=== PATIENT | female | born 1960 | race Caucasian/White ===

== ENCOUNTER 2017-04-24 05:44 | Day surgery (SDC) | payer OTHER ==
[~2017-04-24] VITALS: Ht 162.6 cm; Wt 81.6 kg
[~2017-04-24 05:44] MED LIST: ASPI81TA85 PO
[2017-04-24] MEDS ORDERED: dexameTHASONE 4 MG/ML 1ML VIAL (J1100) IV ONE (06:00)
[2017-04-24] MEDS ORDERED: LR 1,000 ML IV ONE (06:15)
[2017-04-24] MEDS ORDERED: PROPOFOL 200 MG/20 ML VIAL As Ordered ONE (07:03)
[2017-04-24] MEDS ORDERED: MIDAZOLAM INJ 2 MG/2 ML VIAL (J2250) As Ordered ONE (07:03)
[2017-04-24] MEDS ORDERED: ONDANSETRON 4MG/2ML VIAL (J2405) As Ordered ONE (07:03)
[2017-04-24] MEDS ORDERED: LIDOCAINE 2% INJ 100 MG/5 ML SDV (FOR ANES.) As Ordered ONE (07:03)
[2017-04-24] MEDS ORDERED: fentaNYL 100 MCG/2 ML INJECTION (J3010) As Ordered ONE (07:04)
[2017-04-24] MEDS ORDERED: ROCURONIUM BROMIDE 50 MG/5 ML VIAL/SYRINGE As Ordered ONE (07:10)
[2017-04-24] MEDS ORDERED: LIDOCAINE W/EPINEPHRINE 1% 20ML VIAL As Ordered ONE (07:15)
[2017-04-24] MEDS ORDERED: HYDROmorphone HCL 2 MG/ML 1ML VIAL (J1170) As Ordered ONE (08:07)
[2017-04-24] MEDS ORDERED: fentaNYL 100 MCG/2 ML INJECTION (J3010) IV PRN (09:30)
[2017-04-24] MEDS ORDERED: LR 1,000 ML IV SCH ×2 (09:30→11:00)
[2017-04-24] MEDS ORDERED: MORPHINE 2 MG/ML 1ML SYRINGE IV PRN (09:30)
[2017-04-24] MEDS ORDERED: PERCOCET 5MG/325MG TAB PO PRN (09:30)
[2017-04-24] MEDS ORDERED: ONDANSETRON 4MG/2ML VIAL (J2405) IV PRN (09:30)
[2017-04-24] MEDS ORDERED: IBUPROFEN 100 MG/5 ML SUSP UDC DYE FREE PO PRN ×2 (11:00)
[2017-04-24] MEDS ORDERED: HYDROcodone/APAP LIQUID 7.5-325MG 15ML UDC (LORTAB ELIXIR) PO PRN (11:30)
[2017-04-24 12:30] VITALS: BP 136/81
--- NOTE | 2017-04-25 10:56 | RO ---
DATE OF PROCEDURE: 04/24/2017 PREOPERATIVE DIAGNOSIS: Snoring, obstructive sleep apnea. POSTOPERATIVE DIAGNOSIS: Snoring, obstructive sleep apnea. PROCEDURE PERFORMED: Uvulopalatopharyngoplasty. SURGEON: Dr. Javier Salas COMPOSITION MIXER: ANESTHESIA: General. CLINICAL PREAMBLE: This 56-year-old woman presented to the office complaining of snoring. She has had sleep study done, which demonstrated a respiratory disturbance index (RDI) of 11. She is intolerant of continuous positive airway pressure (CPAP) machine. Physical examination revealed enlarged uvula and redundant mucosa over the tonsil pillar regions. Management options, including surgery listed above, had been discussed. The patient understood and consented to the procedure. OR NARRATION: The patient was identified in preoperative holding and brought to the operating room in stable condition. In supine position on the operating room table, the patient received general anesthesia followed by oroendotracheal intubation without incident. The patient prepped and draped in the usual fashion for the procedure. The anterior tonsil pillar and the posterior edge of the soft palate were infiltrated with 1% lidocaine with 1:100,[address] The [place] mouth gag was inserted and suspended. Minimal remnants of palatine tonsil tissues were noted. Using electrocautery, the redundant mucosa, which was remnant of the tonsil tissues, were removed from the tonsil fossa. The posterior tonsil pillars were then also taken down with adequate mucosa left behind for reapproximation done in horizontal mattress suture fashion. The posterior edge as well as the uvula were also resected using the electrocautery. The mucosa was also reapproximated using the #3-0 Vicryl done in a horizontal mattress fashion. Adequate tissue was left in the soft palate region to ensure good approximation of the posterior edge of the soft palate against the posterior pharyngeal wall. At the end of the procedure, sponge and instrument counts were correct. No complication was encountered. Estimated blood loss was less than 5 mL. General anesthesia was reversed and the patient was extubated and brought to the recovery room in stable condition. DALI
== END 2017-04-24 13:20 | disposition home or self-care (01) ==
LOC: M SDC 05:44
PROVIDERS: ATTEND Otolaryngology
DX: R06.83 Snoring (principal); G47.33 Obstructive sleep apnea (adult) (pediatric); J34.2 Deviated nasal septum; J31.0 Chronic rhinitis; Z79.82 Long term (current) use of aspirin; F17.210 Nicotine dependence, cigarettes, uncomplicated; Z86.73 Personal history of transient ischemic attack (TIA), and cerebral infarction without residual deficits; Z91.018 Allergy to other foods; Z88.2 Allergy status to sulfonamides
CPT/HCPCS: 42145; 88302; J1100; J1170; J2250; J2405; J3010

== ENCOUNTER → 2018-07-01 | Outpatient (CLI) | payer OTHER | LOC: M RAD 13:01 | DX: Z12.31 Encounter for screening mammogram for malignant neoplasm of breast (principal) ==

== ENCOUNTER 2023-07-02 10:26 | Day surgery (SDC) | payer OTHER ==
[~2023-07-02] VITALS: Ht 162.6 cm; Wt 88.7 kg
[~2023-07-02 10:26] MED LIST changes: +ASPI81TA26 PO; -ASPI81TA85 PO; +ASPI81TA86 PO; +NS 1,000 ML IV ONE; +ROSU20TA61 PO
[2023-07-02] MEDS ORDERED: propofoL 200 MG/20 ML VIAL As Ordered ONE (13:05)
[2023-07-02 14:00] VITALS: BP 99/56; TEMP 96.6; O2SAT 96
== END 2023-07-02 13:55 | disposition home or self-care (01) ==
LOC: M OPP 10:26
PROVIDERS: ATTEND Internal Medicine Gastroenterology
DX: Z12.11 Encounter for screening for malignant neoplasm of colon (principal); Z12.12 Encounter for screening for malignant neoplasm of rectum; K57.30 Diverticulosis of large intestine without perforation or abscess without bleeding; K64.8 Other hemorrhoids

== ENCOUNTER → 2024-01-14 | Outpatient (CLI) | payer OTHER ==
[~2024-01-14] MED LIST changes: -NS 1,000 ML IV ONE
== END ==
LOC: M PLAIMG 13:43
PROVIDERS: ATTEND Nurse Practitioner Family
DX: Z87.820 Personal history of traumatic brain injury (principal)

== ENCOUNTER → 2024-01-30 | Outpatient (CLI) | payer OTHER | LOC: M WHC 13:40 | PROVIDERS: ATTEND Nurse Practitioner Family | DX: Z12.31 Encounter for screening mammogram for malignant neoplasm of breast (principal) ==